=== PATIENT | male | born 1955 | race Caucasian/White ===

== ENCOUNTER 2025-05-17 13:54 | Inpatient (IN) | payer MEDICARE, OTHER ==
[~2025-05-17] VITALS: Ht 170.2 cm; Wt 83.9 kg
[2025-05-17 15:00] VITALS: BP 128/78; TEMP 98; O2SAT 97
[2025-05-17] MEDS ORDERED: GABA600T12 PO (15:42)
[2025-05-17] MEDS ORDERED: HYDR4TAB4 PO (15:42)
[2025-05-17 16:00] VITALS: BP 144/81; TEMP 97.9; O2SAT 98
[2025-05-17] MEDS ORDERED: DOSING PER PHARMACY-ZOSYN IV 1 EA EA XX PRN (16:00)
[2025-05-17] MEDS ORDERED: Z GUARD REMEDY 4 OZ OINT TP PRN (16:00)
[2025-05-17] MEDS ORDERED: MAG HYDROX/AL HYDROX/SIMETH 30 ML UDC PO PRN (16:00)
[2025-05-17] MEDS ORDERED: ACETAMINOPHEN 325 MG TABLET PO PRN (16:00)
[2025-05-17] MEDS ORDERED: DOSING PER PHARMACY-VANCOMYCIN IV XX PRN (16:00)
[2025-05-17] MEDS ORDERED: ENOXAPARIN SODIUM 40 MG/0.4 ML DISP.SYRIN SQ SCH (16:00)
[2025-05-17] MEDS ORDERED: MAGNESIUM HYDROXIDE 30 ML UDC PO PRN (16:00)
[2025-05-17] MEDS ORDERED: ZOLPIDEM TARTRATE 5 MG TABLET PO PRN (16:00)
[2025-05-17] MEDS ORDERED: ONDANSETRON HCL/PF 4 MG/2 ML VIAL IVP PRN (16:00)
[2025-05-17] MEDS: HYDROCODONE/APAP 10/325MG TABLET PO PRN (16:49)
[2025-05-17] MEDS: IV NS 0.9% 1,000 ML IV PRN (16:50)
[2025-05-17 20:00] VITALS: BP 141/70; TEMP 98.1; O2SAT 95
[2025-05-17] MEDS: VANCOMYCIN 1 GM in IV D5W 250ml IV ONE (20:00)
[2025-05-17] MEDS: ZOSYN IVPB 3.375 G in IV D5W 50ml IV ONE (21:00)
[2025-05-18 00:43] LABS: PLATELET COUNT (AUTO) 57 K/uL (150-450); RED BLOOD CELL COUNT(AUTO) 4.94 MIL/uL (4.5-6.0); RED CELL DISTRIBUTION WIDTH 15.3 % (11.5-15.0); WHITE BLOOD COUNT (AUTO) 4.4 K/uL (4.3-11.0)
[2025-05-18 01:07] LABS: CALCIUM, SERUM 7.9 mg/dL (8.5-10.1); CREATININE 0.7 mg/dL (0.6-1.3); SODIUM SERUM 133.0 mmol/L (136-145); UREA NITROGEN, BLOOD 10.0 mg/dL (7-18)
[2025-05-18 02:10] LABS: EOSINOPHILS % (MANUAL) 4 % (0-4); LYMPHOCYTES % (MANUAL) 41 % (16-48); MONOCYTES % (MANUAL) 15 % (0-11.0); NEUTROPHILS % (MANUAL) 40 (42-76)
[2025-05-18 02:11] LABS: PLATELET ESTIMATE DECREASED
[2025-05-18] MEDS: ZOSYN IVPB 3.375 G in IV D5W 50ml IV ONE (03:43)
[2025-05-18] MEDS: VANCOMYCIN 1 GM in IV D5W 250ml IV ONE (04:31)
[2025-05-18] MEDS: HYDROMORPHONE 1 MG/1 ML DISP.SYRIN IV PRN ×2 (04:42→15:58)
[2025-05-18] MEDS: PANTOPRAZOLE 40 MG TABLET.DR PO SCH (07:30)
[2025-05-18 07:46] LABS: PLATELET COUNT (AUTO) 57 K/uL (150-450); RED BLOOD CELL COUNT(AUTO) 4.51 MIL/uL (4.5-6.0); RED CELL DISTRIBUTION WIDTH 15.4 % (11.5-15.0); WHITE BLOOD COUNT (AUTO) 3.6 K/uL (4.3-11.0)
[2025-05-18 08:00] VITALS: BP 124/88; TEMP 98.7; O2SAT 95
[2025-05-18 08:02] LABS: CALCIUM, SERUM 7.8 mg/dL (8.5-10.1); CREATININE 0.7 mg/dL (0.6-1.3); PHOSPHORUS 3.5 mg/dL (2.5-4.9); SODIUM SERUM 135.0 mmol/L (136-145); UREA NITROGEN, BLOOD 9.0 mg/dL (7-18)
[2025-05-18 08:06] LABS: LDL 50.0 mg/dL (0-99)
[2025-05-18 08:34] LABS: BASOPHILS % (MANUAL) 0 % (0.0-2.0); EOSINOPHILS % (MANUAL) 4 % (0-4); LYMPHOCYTES % (MANUAL) 35 % (16-48); MONOCYTES % (MANUAL) 12 % (0-11.0); NEUTROPHILS % (MANUAL) 49 (42-76); PLATELET ESTIMATE DECREASED
[2025-05-18] MEDS ORDERED: LEVOFLOXACIN 750 MG /D5W 150ML 750 MG in PREMIX 1 EA IV SCH (11:00)
[2025-05-18] MEDS: HYDROCODONE/APAP 5/325MG TABLET PO PRN (11:48)
[2025-05-18] MEDS ORDERED: ZOSYN IVPB 3.375 G in IV D5W 50ml IV SCH (12:00)
[2025-05-18] MEDS: METRONIDAZOLE 500MG/ NS 100ML 500 MG in PREMIX 1 EA IV SCH (12:23)
[2025-05-18] MEDS: LEVOFLOXACIN 500 MG /D5W 100ML 500 MG in PREMIX 1 EA IV SCH (12:30)
[2025-05-18] MEDS: CLINDAMYCIN IV RTU IN D5W 900 MG/50 ML PIGGYBACK IV SCH (14:45)
[2025-05-18] MEDS: CLINDAMYCIN 900 MG in IV D5W 50 ML IV SCH (14:56)
[2025-05-18] MEDS: MEROPENEM 1 G in IV NS 0.9% 100 ML IV SCH (14:58)
[2025-05-18] MEDS: VANCOMYCIN HCL 1.25 GM in IV D5W 250 ML IV SCH (15:57)
[2025-05-18 16:00] VITALS: BP 124/88; TEMP 98.7; O2SAT 95
[2025-05-18 20:00] VITALS: BP 116/75; TEMP 97.9; O2SAT 95
[2025-05-19 08:00] VITALS: BP 124/80; TEMP 97.7; O2SAT 94
[2025-05-19 08:02] LABS: PLATELET COUNT (AUTO) 115 K/uL (150-450); RED BLOOD CELL COUNT(AUTO) 4.76 MIL/uL (4.5-6.0); RED CELL DISTRIBUTION WIDTH 15.0 % (11.5-15.0); WHITE BLOOD COUNT (AUTO) 3.6 K/uL (4.3-11.0)
[2025-05-19 08:11] LABS: ASPARTATE AMINOTRANSFERASE 36.0 U/L (15-37); CALCIUM, SERUM 8.3 mg/dL (8.5-10.1); CREATININE 0.7 mg/dL (0.6-1.3); PHOSPHORUS 4.4 mg/dL (2.5-4.9); SODIUM SERUM 137.0 mmol/L (136-145); TOTAL PROTEIN, SERUM 5.8 g/dL (6.4-8.2); UREA NITROGEN, BLOOD 10.0 mg/dL (7-18)
[2025-05-19 16:00] VITALS: BP 141/80; TEMP 97.6; O2SAT 96
[2025-05-19 20:00] VITALS: BP_SYST 158; BP_DIAS 102; BP_DIAS 61; TEMP 97.5; O2SAT 96
[2025-05-20 07:12] LABS: PLATELET COUNT (AUTO) 217 K/uL (150-450); RED BLOOD CELL COUNT(AUTO) 4.87 MIL/uL (4.5-6.0); RED CELL DISTRIBUTION WIDTH 15.1 % (11.5-15.0); WHITE BLOOD COUNT (AUTO) 4.1 K/uL (4.3-11.0)
[2025-05-20 07:22] LABS: ASPARTATE AMINOTRANSFERASE 60.0 U/L (15-37); CALCIUM, SERUM 8.9 mg/dL (8.5-10.1); CREATININE 0.7 mg/dL (0.6-1.3); PHOSPHORUS 3.9 mg/dL (2.5-4.9); SODIUM SERUM 136.0 mmol/L (136-145); TOTAL PROTEIN, SERUM 6.5 g/dL (6.4-8.2); UREA NITROGEN, BLOOD 11.0 mg/dL (7-18)
[2025-05-20 08:00] VITALS: BP 150/68; TEMP 97.5; O2SAT 97
[2025-05-20] MEDS: VANCOMYCIN 1 GM in IV D5W 250ml IV SCH (11:47)
[2025-05-20 16:00] VITALS: BP 177/78; TEMP 98.1; O2SAT 98
[2025-05-20 20:00] VITALS: BP 152/86; TEMP 97.9; O2SAT 97
[2025-05-21 04:16] LABS: CALCIUM, SERUM 7.9 mg/dL (8.5-10.1); CREATININE 0.8 mg/dL (0.6-1.3); SODIUM SERUM 136.0 mmol/L (136-145); UREA NITROGEN, BLOOD 10.0 mg/dL (7-18)
[2025-05-21] MEDS ORDERED: CLONIDINE HCL 0.1 MG TABLET PO PRN (08:00)
[2025-05-21] MEDS ORDERED: GABAPENTIN 300 MG CAPSULE PO SCH (10:30)
[2025-05-21] MEDS ORDERED: CEFTRIAXONE 2 G in IV D5W 100 ML IV SCH (11:00)
[2025-05-21] MEDS ORDERED: HYDROMORPHONE HCL 2 MG TABLET PO PRN (12:00)
== END 2025-05-21 12:27 | disposition left against medical advice (07) | DRG 602 ==
LOC: MED 13:54
PROVIDERS: ATTEND Internal Medicine
DX: L03.113 Cellulitis of right upper limb (principal); M72.6 Necrotizing fasciitis; I96 Gangrene, not elsewhere classified; L02.511 Cutaneous abscess of right hand; L03.114 Cellulitis of left upper limb; M60.9 Myositis, unspecified; G62.9 Polyneuropathy, unspecified; Z98.890 Other specified postprocedural states; Z79.899 Other long term (current) drug therapy; Z68.29 Body mass index [BMI] 29.0-29.9, adult; F19.11 Other psychoactive substance abuse, in remission; Z53.29 Procedure and treatment not carried out because of patient's decision for other reasons; B96.89 Other specified bacterial agents as the cause of diseases classified elsewhere; R23.4 Changes in skin texture
CPT/HCPCS: 36415; 73200-TC; 80048-TC; 80053-TC; 80061-TC; 80202-TC; 82550-TC; 83605-TC; 83735-TC; 84100-TC; 84443-TC; 85025-TC; 85027-TC; 86140-TC; 86803; 87040-TC; 87081-TC; 87806; A4216; A4223; G0378; J0696; J1171; J1956; J2185; J2543; J3373; J3490; J7030; J7060